=== PATIENT | female | born 1990 | race Caucasian/White ===

== ENCOUNTER 2023-08-28 09:11 | Day surgery (SDC) | payer SELFPAY ==
[2023-08-20 14:35] VITALS: BMI 23.2
[2023-08-28] MEDS ORDERED: LIDOCAINE 1%/EPI 1:100000 (20 ML MULTI DOSE VIAL) ONE (09:22)
[2023-08-28] MEDS ORDERED: BUPIVACAINE HCL/PF 0.25% (2.5MG/ML) 10 ML VIAL ONE (09:22)
[2023-08-28] MEDS ORDERED: BACITRACIN ZINC 15 GM TUBE TOPICAL OINTMENT ONE (09:22)
[2023-08-28] MEDS ORDERED: BUPIVACAINE HCL/PF 2.5 MG/ML - 30 ML VIAL IJ ONE (09:23)
[2023-08-28] MEDS ORDERED: PROPOFOL 20 ML ONE (10:02)
[2023-08-28] MEDS ORDERED: MIDAZOLAM HCL 2 MG/2 ML SINGLE DOSE VIAL ONE (10:03)
[2023-08-28] MEDS ORDERED: ACETAMINOPHEN 325 MG TABLET (FP) PO PRN (10:42)
[2023-08-28] MEDS ORDERED: ONDANSETRON 4 MG/2 ML VIAL IVPUSH PRN (10:42)
[2023-08-28] MEDS ORDERED: LACTATED RINGERS SOLUTION 1,000 ML IV SCH (10:45)
[2023-08-28] MEDS ORDERED: ACETAMINOPHEN INJECTION 100 ML IVPB ONE (10:49)
[2023-08-28] MEDS ORDERED: ceFAZolin SODIUM 1 GM VIAL ONE ×2 (11:01)
[2023-08-28] MEDS ORDERED: DEXAMETHASONE SOD PHOSPHATE 4 MG/1 ML VIAL ONE (11:03)
[2023-08-28] MEDS: LIDOCAINE 1%/EPI 1:100000 (20 ML MULTI DOSE VIAL) IJ ONE (11:13)
[2023-08-28] MEDS: BUPIVACAINE HCL/PF 2.5 MG/ML - 30 ML VIAL IJ ONE (11:13)
[2023-08-28] MEDS: LIDOCAINE HCL 1%, 10 MG/ML (20ML VIAL) NR ONE (11:13)
[2023-08-28] MEDS: PROMETHAZINE HCL 25 MG/1 ML VIAL IVPB ONE (12:30)
[2023-08-28 13:40] VITALS: RESP 16; TEMP 97.3
[2023-08-28] MEDS ORDERED: BACITRACIN/POLYMYXIN B SULFATE 15 GM TUBE TP SCH (13:45)
[2023-08-28] MEDS ORDERED: BACITRACIN ZINC 15 GM TUBE TOPICAL OINTMENT TP ONE ×2 (13:58→14:15)
[2023-08-28 16:29] VITALS: BP 113/80; PULSE 81
== END 2023-08-28 14:00 | disposition home or self-care (01) ==
LOC: FASU 09:11
PROVIDERS: ATTEND Surgery
PROC: 0UBM0ZZ Excision of Vulva, Open Approach (ICD-10-PCS; principal; 2023-08-28 11:18)
DX: N90.60 Unspecified hypertrophy of vulva (principal)
CPT/HCPCS: 81025; 94760; J0131